=== PATIENT | female | born 1950 | race Two or more races ===

== ENCOUNTER 2025-03-02 22:39 | Emergency (ER) | payer OTHER ==
[~2025-03-02] VITALS: Ht 152.4 cm; Wt 64.4 kg
[2025-03-02] MEDS ORDERED: LOSARTAN POTASS50 MG (23:16)
[2025-03-02] MEDS ORDERED: LIPITOR40 M1 (23:16)
[2025-03-02] MEDS ORDERED: NORVASC2.5 M1 (23:17)
[2025-03-02] MEDS ORDERED: ZETIA10 MG (23:17)
[2025-03-02] MEDS ORDERED: TOPROL XL25 M1 (23:18)
[2025-03-02] MEDS ORDERED: PROAIR RESPICL90 MCG (23:19)
[2025-03-02] MEDS ORDERED: ERGOCALCIF200 MCG/1 (23:19)
[2025-03-02] MEDS ORDERED: MELOXICAM15 MG (23:20)
[2025-03-02] MEDS ORDERED: ALENDRONATE SOD70 MG (23:20)
[2025-03-02] MEDS ORDERED: DRAMAMINE LESS25 MG (23:20)
[2025-03-02] MEDS ORDERED: OMEGA 3 1,0001 EACH (23:21)
[2025-03-02] MEDS ORDERED: CALTRATE 600+D1 EAC1 (23:21)
[2025-03-02] MEDS ORDERED: VITAMIN E400 UNI7 (23:21)
[2025-03-02] MEDS ORDERED: DIALYVITE 800800 MCG (23:22)
[2025-03-02] MEDS ORDERED: GLUCOSAMINE H1500 MG (23:22)
[2025-03-03] MEDS ORDERED: TRIAMCINOLONE ACETONIDE 40 MG/ML VIAL IM STA (00:51)
[2025-03-03] MEDS ORDERED: KETOROLAC TROMETHAMINE 60 MG VIAL IM STA (00:51)
[2025-03-03] MEDS ORDERED: AMOX-CLAV 875-1 EAC1 PO (02:13)
[2025-03-03] MEDS ORDERED: NABUMETONE750 MG PO (02:13)
== END 2025-03-03 02:24 ==
LOC: ER 22:40
DX: R68.84 Jaw pain (principal); I10 Essential (primary) hypertension
CPT/HCPCS: 70100; 70210; 96372; 99283; J1885; J3490